=== PATIENT | female | born 1990 | race Caucasian/White ===

== ENCOUNTER 2024-05-17 05:22 | Emergency (ER) | payer OTHER ==
[~2024-05-17] VITALS: Ht 162.6 cm; Wt 102.5 kg
[~2024-05-17 05:22] MED LIST: ACET1TAB12 PO
--- NOTE | 2024-05-17 05:36 | ERN ---
ED Note History of Present Illness Stated Complaint: FEVER. STREP + Chief Complaint: Fever Time Seen by MD: 05:32 Dictation: This is a 34-year-old female who presented to the emergency room with complaints of fever cough congestion. Most of her symptoms began on Saturday and she saw her primary care physician on and tested positive for strep. She was given erythromycin and she has been taking erythromycin as prescribed however continues to have fever with sweating feeling extremely tired. Her children were also sick and they tested positive for flu. She denied any recent travel or new pets at home she denied smoking. No hemoptysis. Patient stated that her temp was 102.5 and she took Tylenol at 3:30 a.m. and decided to come in for a checkup Temperature 99.9 pulse 114 respirations 20 blood pressure 157/103 pulse oximetry 94% on room air She has a known history of diabetes mellitus Allergies: Coded Allergies: cefazolin (Unverified Allergy, Intermediate, REDNESS, 10/14/14) Home Meds Active Scripts Acetaminophen with Codeine (Tylenol with Codeine #3 Tablet) 1 Each Tablet, 1-2 TAB PO Q6H PRN for PAIN, #20 TAB Prov:BHUMIKA DUNBAR MD 10/16/14 Past Medical History Past Medical History: Diabetes-Type II Surgical History: Cholecystectomy, BTL, Family History: Negative Social History: Negative RN Note Reviewed/Agreed w/PFSH: Yes Review of System Dictation Constitutional: Positive for fever,chills, and weight loss Eyes: Negative for injury, pain,redness, and discharge ENT: Negative for injury,pain or swelling Cardiovascular: Negative for chest pain, palpitations, and edema Respiratory: Negative for shortness of breath, positive for cough, and wheezing, Abdomen/GI: Negative for abdominal pain, nausea, vomiting, diarrhea, and constipation Back: Negative for injury and pain : Negative for injury, bleeding and discharge MS/Extremity: Negative for injury and deformity Skin: Negative for rash, and discoloration Neuro: Negative for headache, weakness, numbness, tingling, and seizure Psych: Negative for suicide ideation, homicidal ideation, and hallucinations Initial Vital Sign VS Vital Signs Date Time Temp Pulse Resp B/P (MAP) Pulse Ox O2 Delivery O2 Flow Rate FiO2 05/17/24 05:23 99.9 114 20 157/103 97 Room Air 05/17/24 06:14 0 21 Physical Exam Dictation General: awake, alert, NAD obese Head/Face: Normocephalic, atraumatic Eyes: PERRL, EOMI, vision at baseline ENT: oral cavity clear, TMs clear, no signs of infection Neck: Trachea midline, supple, no nuchal rigidity Cardiovascular: RRR, normal S1/S2, No MRGs, no JVD Respiratory: CTAB, no respiratory distress, No rales or wheezes Abdomen: Soft, non-tender, non-distended, normal bowel sounds, no guarding or rebound. Skin: Warm, dry, normal turgor, no rash MS/Extremity: Pulses equal, no cyanosis, neurovascular intact, FROM Neuro: COAx4, GCS 15, strength 5/5, CN 2-12 intact, normal cerebellar exam, normal gait, Psych: Normal behavior, mood, and affect normal Extremities-trace edema without any palpable cords, Homans sign is negative Results (Laboratory/Radiology) Laboratory/Radiology Laboratory Tests Test 05/17/24 06:05 05/17/24 06:13 White Blood Count 6.9 K/uL (4.8-10.8) Red Blood Count 4.95 MIL/uL (4.00-5.50) Hemoglobin 14.2 g/dL (12.0-16.0) Hematocrit 41.3 % (36-48) Mean Corpuscular Volume 83.4 fL (79-99) Mean Corpuscular Hemoglobin 28.7 pg (27.0-33.0) Mean Corpuscular Hemoglobin Concent 34.4 g/dL (32.0-36.0) Red Cell Distribution Width 12.5 % (11.0-15.5) Platelet Count 230 K/uL (130-400) Mean Platelet Volume 10.1 fL (7.5-10.5) Immature Granulocyte % (Auto) 0.3 % (0-1) Neutrophils (%) (Auto) 66.8 % (40.0-77.0) Lymphocytes (%) (Auto) 22.2 % (21.0-51.0) Monocytes (%) (Auto) 6.7 % (3.0-13.0) Eosinophils (%) (Auto) 3.6 % (0.0-8.0) Basophils (%) (Auto) 0.4 % (0.0-5.0) Neutrophils # (Auto) 4.6 K/uL (1.8-7.7) Lymphocytes # (Auto) 1.5 K/uL (1.0-4.8) Monocytes # (Auto) 0.5 K/uL (0.1-1.0) Eosinophils # (Auto) 0.25 K/uL (0.00-0.70) Basophils # (Auto) 0.03 K/uL (0.00-0.20) Absolute Immature Granulocyte (auto 0.02 K/uL (0-1) Nucleated Red Blood Cells 0.0 % (0.0-0.19) Sodium Level 135 mmol/L (136-145) L Potassium Level 3.8 mmol/L (3.5-5.1) Chloride Level 102 mmol/L (101-111) Carbon Dioxide Level 27 mmol/L (21-32) Blood Urea Nitrogen 7 mg/dL (7-18) Creatinine 0.5 mg/dL (0.5-1.0) Glomerular Filtration Rate Calc 127 mL/min (>90) Random Glucose 293 mg/dL (70-105) H Lactic Acid Level 1.6 mmol/L (0.8-2.5) Total Calcium 9.1 mg/dL (8.5-10.1) Human Chorionic Gonadotropin, Quant 1 mIU/mL (0-5) Influenza Type A Antigen Negative For Type A Influenza Type B Antigen Negative For Type B SARS-CoV-2, RNA, NAAT NEGATIVE SARS CoV-2 Labs Reviewed?: Yes ED Course ED Course Orders Procedure Category Date Status Time Influenza Type A & B, LAB 05/17/24 Complete Rapid 05:33 Cbc With Differential LAB 05/17/24 Complete 05:33 Basic Metabolic Panel LAB 05/17/24 Complete 05:33 Hcg,Quantitative LAB 05/17/24 Complete 05:33 Urinalysis Profile LAB 05/17/24 Logged 05:33 Lactic Acid LAB 05/17/24 Complete 05:33 0.9%Nacl 1000ml (Ns PHA 05/17/24 Complete 1000ml) 06:00 Chest 1vw RAD 05/17/24 Taken 05:40 Covid Rna Naat LAB 05/17/24 Complete 06:07 Methylprednisolone PHA 05/17/24 Complete Succ 40mg (Solu-Medro 07:00 Ipratropium/Albuterol PHA 05/17/24 Complete Neb (Duoneb) 07:00 Levofloxacin 750mg PHA 05/17/24 Logged Tab (Levaquin 750mg T 07:30 Current Medications Medications (Trade) Dose Ordered Sig/Evan Route PRN Reason Start Time Stop Time Status Last Admin Dose Admin Albuterol (DUOneb) 1 UDVIAL ONCE ONCE IH 05/17/24 07:00 05/17/24 07:01 DC Levofloxacin (LEvaquIN 750MG TAB) 750 mg ONCE PO 05/17/24 07:30 05/27/24 07:29 UNV Methylprednisolone Sodium Succinate (Solu-medROL 40MG) 40 mg ONCE ONCE IVP 05/17/24 07:00 05/17/24 07:01 DC 05/17/24 06:47 Sodium Chloride 1,000 ml @ 0 mls/hr ONCE ONCE IV 05/17/24 06:00 05/17/24 06:01 DC 05/17/24 06:07 Vital Signs Date Time Temp Pulse Resp B/P (MAP) Pulse Ox O2 Delivery O2 Flow Rate FiO2 05/17/24 06:14 99.3 105 18 145/83 95 Room Air* 0 21 05/17/24 05:23 99.9 114 20 157/103 97 Room Air We will perform diagnostic labs, advanced imaging and administer medications according to the patient's complaint. Once the results are available, will review and personally interpreted the labs to rule out any acute life- threatening emergency the trach require immediate intervention and treatment. I will then re-evaluate the patient after treatment and diagnostic exams have return to determine whether the patient requires any further testing, can safely be discharged home or need further admission to hospital for additional treatment and evaluation. Labs reviewed CBC is with a normal limits BNP 7 is normal except for sugar which is 293. test is negative. Influenza a and B are negative and COVID test is negative. Chest x-ray is still pending at this time along with urinalysis 7:18 a.m.. Chest x-ray shows bilateral patchy infiltrates with pneumonitis. We will give empiric antibiotic Levaquin and discharge her on Levaquin and prednisone Medical Decision Making MDM MDM: Differential diagnosis: Viral syndrome, strep pharyngitis, bronchitis, pneumonia, UTI Rationale: Tests considered and ordered secondary to shared decision making inc lude: Previous outside records reviewed: Old ER visits. Risk of complication and/or morbidity or mortality of patient management: None Medications-Per medication reconciliation Need for hospitalization: Patient does not meet criteria for hospitalization. Need for emergency major/minor surgery: No There are no social concerns with this patient. Prescription drug management Prescriptions will include symptomatic care Patient's prior external medical records from other ER visits were reviewed by me as indicated. Prior testing and results from previous visits were reviewed. Prior tests were taken into account with medical decision making and resource utilization, independent historian/historians were used to obtain complete medical history. I independently interpreted the test that were performed, results were reviewed by me and considered findings on radiology if ordered. Medical management and examination interpretation discussions were had by me with other qualified healthcare professionals as indicated for the patient's care. Problem List Problem List: (1) Strep pharyngitis (2) Fever (3) Sepsis (4) Pneumonia DX & DISP Disposition: Discharge Departure Impression: Primary Impression: Sepsis Additional Impressions: Fever, Strep pharyngitis, Pneumonia Condition: Stable Scripts Prednisone (Prednisone) 20 Mg Tablet 1 TAB PO AD for 6 Days, #14 TAB 0 Refills TAKE 1 TAB BY MOUTH THREE TIMES PER DAY X3 DAYS, THEN TAKE 1 TAB BY MOUTH TWICE A DAY X2 DAYS, THEN TAKE 1 TAB BY MOUTH ONCE A DAY X1 DAY. Prov: GROVER ELIAS MD 05/17/24 Levofloxacin (Levofloxacin) 750 Mg Tablet 1 TAB PO DAILY for 7 Days, #7 TAB 0 Refills Prov: GROVER ELIAS MD 05/17/24 Additional Instructions: Patient and the caregiver have been informed of all the diagnostic tests and the imaging conducted during the today's visit to the emergency room and has verbalized understanding of the results I have personally reviewed and interpreted all diagnostic exams performed here in the ER today as well as the vital signs documented by the nursing staff. The patient is now being discharged to home and should follow up with the primary care physician or the specialist as directed by the ER staff. Follow-up with primary care provider in 1 to 2 days. Take medications as directed here in the emergency room. Okay to continue home medications unless otherwise discussed during your visit in the emergency room today. Return to your nearest emergency room if symptoms worsen or if there is no improvement. Call 911 if you need immediate assistance. Take Tylenol or Motrin [id number] as needed and if no contraindications are present. Increase oral hydration. A wound culture or urine culture was ordered here in the emergency room department please follow-up with primary care provider and advise them to get repeat ports from our facility. If you had any Cedrick wrap/splints that were applied here, please do not remove them until you see your primary care or specialty. Referrals: SELF,REFERRAL (PCP) GROVER ELIAS MD May 17, 2024 05:36
[2024-05-17] MEDS: 0.9%NACL 1000ML 1,000 ML IV ONE (06:07)
[2024-05-17 06:14] VITALS: BP 145/83; TEMP 99.3; O2SAT 95
[2024-05-17 06:14] LABS: BASOPHILS # (AUTO) 0.03 K/uL (0.00-0.20); BASOPHILS % (AUTO) 0.4 % (0.0-5.0); EOSINOPHILS # (AUTO) 0.25 K/uL (0.00-0.70); EOSINOPHILS % (AUTO) 3.6 % (0.0-8.0); HEMATOCRIT 41.3 % (36-48); IMMATURE GRANULOCYTE ABSOLUTE 0.02 K/uL (0-1); LYMPHOCYTES # (AUTO) 1.5 K/uL (1.0-4.8); LYMPHOCYTES % (AUTO) 22.2 % (21.0-51.0); MEAN CORPUSCULAR HEMOGLOBIN 28.7 pg (27.0-33.0); MEAN CORPUSCULAR HGB CONC 34.4 g/dL (32.0-36.0); MEAN CORPUSCULAR VOLUME 83.4 fL (79-99); MONOCYTES # (AUTO) 0.5 K/uL (0.1-1.0); MONOCYTES % (AUTO) 6.7 % (3.0-13.0); NEUTROPHILS # (AUTO) 4.6 K/uL (1.8-7.7); NEUTROPHILS % (AUTO) 66.8 % (40.0-77.0); PLATELET COUNT (AUTO) 230 K/uL (130-400); RED BLOOD CELL COUNT(AUTO) 4.95 MIL/uL (4.00-5.50); RED CELL DISTRIBUTION WIDTH 12.5 % (11.0-15.5); WHITE BLOOD COUNT (AUTO) 6.9 K/uL (4.8-10.8)
[2024-05-17 06:31] LABS: SARS-CoV-2, RNA, NAAT NEGATIVE SARS CoV-2 (NEGATIVE)
[2024-05-17 06:34] LABS: INFLUENZA TYPE A Negative For Type A (NEGATIVE); INFLUENZA TYPE B Negative For Type B (NEGATIVE)
[2024-05-17 06:37] LABS: CREATININE 0.5 mg/dL (0.5-1.0); POTASSIUM 3.8 mmol/L (3.5-5.1)
[2024-05-17] MEDS: Solu-medROL 40MG VIAL IVP ONE (06:47)
[2024-05-17] MEDS ORDERED: PRED20TA3 PO (07:18)
[2024-05-17] MEDS ORDERED: LEVO750T40 PO (07:18)
[2024-05-17] MEDS: levoFLOXacin 750 MG TABLET PO ONE (07:31)
[2024-05-17 07:47] VITALS: PULSE 101; RESP 14
[2024-05-17] MEDS: IpraTROPium/alBUTERol SULFATE 3 ML SOLUTION IH ONE (07:48)
--- NOTE | 2024-05-17 07:51 | NUR ---
PT STABLE NO C/O PAIN AAOX4, PT GIVEN INSTRUCTIONS FOR HOME, VERBALIZED UNDERSTANDING, PT IV REMOVED CATHETER INTACT. PT TAKEN OUT IN W/C DRIVEN HOME BY FAMILY.
--- NOTE | 2024-05-17 08:36 | HMCIMG ---
INDICATION: fever TECHNIQUE: CHEST 1VW COMPARISON: None FINDINGS AND IMPRESSION: Prominent bilateral interstitial markings which may represent bronchitis or vascular congestion in the proper clinical setting. Cardiac silhouette is within normal limits. Mild degenerative changes of the spine. The visualized upper abdomen appears unremarkable.
== END 2024-05-17 07:59 | disposition home or self-care (01) ==
LOC: EDH 05:22
DX: A41.9 Sepsis, unspecified organism (principal); J18.9 Pneumonia, unspecified organism; J02.0 Streptococcal pharyngitis; R10.2 Pelvic and perineal pain; E11.9 Type 2 diabetes mellitus without complications; Z20.822 Contact with and (suspected) exposure to COVID-19; Z79.899 Other long term (current) drug therapy; Z88.1 Allergy status to other antibiotic agents; Z90.49 Acquired absence of other specified parts of digestive tract; Z98.51 Tubal ligation status; Z98.890 Other specified postprocedural states
CPT/HCPCS: 99284; 96374; 96361; 71045; 87635; 80048; 84702; 85025; 87804 ×2; 83605; 36415; 94640; J2919; J7030